=== PATIENT | female | born 1940 | race Caucasian/White ===

== ENCOUNTER → 2017-11-23 | Outpatient (CLI) | payer MEDICARE, OTHER | LOC: M.RAD 13:58 | DX: Z12.31 Encounter for screening mammogram for malignant neoplasm of breast (principal) ==

== ENCOUNTER 2019-07-25 07:42 | Observation (INO) | payer MEDICARE, OTHER ==
[2019-07-25] VITALS (17 sets, daily range): BP systolic 141–206; BP diastolic 45–83
[~2019-07-25] VITALS: Ht 165.1 cm; Wt 105.2 kg
--- NOTE | ~2019-07-25 | H ---
[address] [address] HISTORY AND PHYSICAL Name: MARIANNE DICKENS Room: [address] Ruba Rhoades#: [id number] Admission: 07/25/19 Attend Phys: Benedict Aguero MD, Discharge: 07/26/19 Date of : 44 Report #: [id number] THIS REPORT FOR: //name// Please refer to the History and Physical performed in the physician's office. By: 0816Medical Records Staff ABILIO /ELENI
[~2019-07-25 07:42] MED LIST: ASPIR 8181 MG PO; ATENOLOL 25MG T25 M1 PO; B COMPLEX1 EACH PO; CENTRUM SILVER1 EAC4 PO; SERTRALINE HCL50 MG PO; VITAMIN D5000 UNIT PO; ZOCOR20 MG PO
[2019-07-25 08:32] LABS: HEMOGLOBIN 13.5 gm/dL (12.0-15.0); MCH 29.6 pg (26.0-34.0); MCHC 33.8 g/dL (28.0-37.0); MCV 87.4 fL (80.0-100.0); MPV 7.9 fl. (7.2-11.1); RBC 4.58 mil/uL (4.20-5.00); RDW-CV 13.9 % (10.5-14.5); WBC 6.3 thou/uL (4.0-11.0)
[2019-07-25 08:35] LABS: CREATININE 0.9 mg/dL (0.6-1.3)
[2019-07-25 08:38] LABS: APTT 26.8 Seconds (25.0-31.3); PROTIME 10.1 Seconds (9.20-11.50)
[2019-07-25] MEDS ORDERED: IMDUR 30 MG TAB30 M1 PO (08:39)
[2019-07-25 08:45] LABS: ALBUMIN 3.8 g/dL (3.4-5.0); TOTAL BILIRUBIN 0.4 mg/dL (<0.1-1.0); TOTAL PROTEIN 6.9 g/dL (6.4-8.2)
[2019-07-25 09:08] LABS: CHOLESTEROL 151 mg/dL (<200); HDL CHOLESTEROL 42 mg/dL (>40); LDL CHOLESTEROL 80 mg/dL (<100); SERUM ASSESSMENT Clear; TC:HDL 3.6 Ratio (Not establshd); TRIGLYCERIDE 149 mg/dL (<150); VLDL 30 mg/dL (<40)
--- NOTE | 2019-07-25 10:49 | EKG ---
[place] [address] ELECTROCARDIOGRAM REPORT Name: PENNYMarciMARIANNE Nicole Room: [address] M.R.#: [id number] Admission: 07/25/19 Attend Phys: Benedict Aguero MD, Discharge: Date of : 44 Report #: [id number] THIS REPORT FOR: //name// [facility] Test Date: 2019-07-25 Test Time: 08:06:30 Pat Name: MARIANNE DICKENS Department: Room: [facility] Gender: F Document Control Manager: : 1940 Requested By: Benedict Aguero Order Number: [id number] Sallie MD: Benedict Aguero Measurements Intervals [place] Rate: 63 P: 38 [place]: 190 QRS: 32 QRSD: 123 T: 9 QT: 434 QTc: 445 Interpretive Statements Sinus rhythm Multiple premature complexes, vent & supraven Right bundle branch block No previous ECG available for comparison Electronically Signed On 07-25-2019 10:49:21 CDT by Benedict Aguero [email or web address] <ELECTRONICALLY SIGNED> By: Benedict Aguero MD, [facility] 07/25/19 1049 5 5 Benedict Aguero MD, FACC /EPI
--- NOTE | 2019-07-25 15:03 | EKG ---
[place] [address] ELECTROCARDIOGRAM REPORT Name: LYNNOÉMARIANNE Covarrubias Room: [address] M.R.#: [id number] Admission: 07/25/19 Attend Phys: Benedict Aguero MD, Discharge: Date of : 44 Report #: [id number] THIS REPORT FOR: //name// [facility] Test Date: 2019-07-25 Test Time: 11:34:10 Pat Name: MARIANNE DICKENS Department: Room: [facility] Gender: F Golf Course Architect: : 1940 Requested By: Benedict Aguero Order Number: [id number] Sallie MD: Benedict Aguero Measurements Intervals [place] Rate: 51 P: 40 [place]: 199 QRS: 38 QRSD: 132 T: 27 QT: 517 QTc: 477 Interpretive Statements Sinus rhythm IVCD, consider atypical RBBB Compared to ECG 07/25/2019 08:06:30 No significant changes Electronically Signed On 07-25-2019 15:03:17 CDT by Benedict Aguero [email or web address] <ELECTRONICALLY SIGNED> By: Benedict Aguero MD, [facility] 07/25/19 1503 1134 1134 Benedict Aguero MD, [facility] /EPI
--- NOTE | 2019-07-25 15:31 | CARD ---
[address] [address] CARDIAC CATH REPORT Name: MARIANNE DICKENS Room: [address] [place]#: [id number] Admission: 07/25/19 Attend Phys: Benedict Aguero MD, Discharge: Date of : 44 Report #: [id number] THIS REPORT FOR: //name// APPROVED REPORT Study performed: 07/25/2019 08:51:42 Patient Details The patient is a 78 year-old female Event Personnel Benedict Aguero Data Modeling Specialist, Chayito Grimes RN Flight Crew Time Clerk, Mariposa Silva RN Flight Crew Time Clerk, Sina Callejas (Eze Farfan Brad EMERGENCY ROOM TECHNICIAN Monitor, Mona Westbrook RTR Monitor Procedures Performed Left Heart Cath w/or w/o Coronaries [id number] [facility] w/wo Plasty Single LAD [id number] Indication Positive stress test Risk Factors Hypercholesterolemia, Hypertension Admission/Lab Medications/Medications given during procedure Angiomax bolus and infusion Procedure Narrative The patient was brought electively to the Cardiac Catheterization Laboratory and was prepped and draped in a sterile manner. The right femoral was infiltrated with 2% Lidocaine subcutaneous anesthesia. A Sulligent 6 FR sheath was inserted into the RFA. Coronary angiography was performed using coronary diagnostic catheters. The right coronary system was accessed and visualized with a JR 4 6F catheter. The left coronary system was accessed and visualized with a JL 4 6F catheter. The left ventricle was accessed and visualized with a STRAIGHT PIG 6F catheter. Left ventricular/Aortic Valve gradient assessed via catheter pullback. Pre-demployment femoral angiogram was performed . Closure device was deployed with a Fr Angioseal STS 6Fr. The patient tolerated the procedure well and there were no complications associated with the procedure. There was no hematoma. Intraoperative Conscious Sedation Sedation start time: 923 Case end Time: [place] [address] CARDIAC CATH REPORT Name: PENNYMarciMARIANNE Room: [address] M.R.#: [id number] Admission: 07/25/19 Attend Phys: Benedict Aguero MD, Discharge: Date of : 44 Report #: [id number] 1012 Fentanyl 50 mcg Versed 3 mg Fluoro Time: 9.1 minutes Dose: DAP [id number] cGycm2 2037 mGy Contrast Type and Amount: Visipaque 420 ml Coronary Angiography The patient's coronary anatomy is right dominant. Diagnostic Cath Left Main 0% narrowing LAD 80% mid with 40% distal stenosis Circumflex 40% mid vessel narrowing Right Coronary Dominant vessel with 30% proximal 40% mid and 30% distal narrowing Left Ventriculography The left ventricle is normal in size with normal contractility. The left ventricular ejection fraction is estimated to be 60%. Left ventricular wall motion abnormalities are not present. There is no mitral insufficiency. Hemodynamics The aortic pressure is 187/66 mmHg with a mean of 109 mmHg. The left ventricular pressure is 197/3 mmHg with a mean of mmHg. The left ventricular end diastolic pressure is 17 mmHg. There was no gradient across the aortic valve upon pullback. PCI Technique Lesion Anticoagulation was achieved with Angiomax Drip. Patient was preloaded with Angiomax IV 18 mg per kg. Percutaneous coronary intervention was performed on the mid left anterior descending artery segment. The lesion stenosis prior to intervention was 80% with PETE 3 flow. A 6F XB LAD 3.5 Guide Catheter was used to engage the LEFT ostium. A IG: BMW 190cm Interventional Guidewire was used to cross the lesion. BALLOON DILATION A Balloon catheter NC Euphora 2.5x8 was inserted and inflated up to 16.00atm for 20seconds. Additional Inflation: 20.00atm for 13seconds. STENT DEPLOYMENT A drug-eluting stent Xience Li 2.5X12mm was inserted and inflated up to 12.00atm for 11seconds. Additional Inflation: 15.00[place] [address] CARDIAC CATH REPORT Name: MARIANNE DICKENS Room: [address] M.R.#: [id number] Admission: 07/25/19 Attend Phys: Benedict Aguero MD, Discharge: Date of : 44 Report #: [id number] 9seconds. POST STENT DEPLOYMENT BALLOON DILATION A Balloon catheter NC Euphora 2.75x8 was inserted and inflated up to 15.00atm for 9seconds. Additional Inflation: 17.00atm for 5seconds. Final angiography reveals 0 % stenosis with PETE 3 flow. Conclusion #1 significant coronary artery disease characterized by the following: A 80% mid LAD narrowing with 40% distal narrowing B 40% narrowing of the midportion of the nondominant circumflex C dominant right coronary artery 30% proximal 40% mid and 30% distal narrowing #2 normal left ventricular systolic function, estimate ejection fraction being 60% #3 significant systemic systolic hypertension with moderate elevation of left ventricular end-diastolic pressure at rest #5 successful percutaneous coronary intervention with deployment of drug-eluting stent at the site of 80% mid LAD stenosis with 0% residual narrowing and PETE-3 flow the distal vessel Recommendations Cardiac Risk Reduction Program Aggressive Medical Therapy Medications Administered Aspirin (any) Ticagrelor Diagnostic Cath Approved by: Benedict Aguero MD Date/Time: 07/25/2019 15:30:37 <ELECTRONICALLY SIGNED> By: Benedict Aguero MD, [facility] 07/25/19 1531 1531 1531Benedict Aguero MD, FAC /INF
--- NOTE | 2019-07-25 17:42 | NUR ---
PT ARRIVED TO UNIT POST CATH AT APPROX 1045, FAMILY AT SIDE. EDUCATED ON POST CATH PROCEDURES, PT TO LAY FLAT UNTIL 1630. PT BECAME HYPERTENSIVE. NEW ORDERS RECVD FOR LOSARTAN AND HYDRALAZINE, PT TOLERATED WELL. ORIENTED TO CALL LIGHT AND ROOM, HOURLY ROUNDING COMPLETED.
[2019-07-26] VITALS: BP 200/71
--- NOTE | 2019-07-26 01:34 | NUR ---
RIGHT GROING POST CATH DRESSING DRY AND INTACT WITH BRUISING UNDERNEATH. BRUISING ALSO NOTED UNDER IV SITE. OFFERED TO GIVE PT PRN HYDRALAZINE WITH HS MEDS WITH BP 172/67. RECHECKED @ 2230 BP WAS 169/66. DENIED ANY PAIN. PT DID REPORT SOME ANXIETY AND SOA R/T "BLOOD PRESSURE BEING HIGH TODAY." PT REPORTED "THE CARDIOLOGY TOLD ME THE BRINTELLIX MIGHT MAKE MY BP HIGH FOR THE FIRST 24HRS." MIDNIGHT AND REPORT GIVEN TO DERRICK GUTHRIE. PRN HYDRALAZINE GIVEN BY JESICA GUTHRIE.
[2019-07-26 02:49] VITALS: BP 181/73
[2019-07-26 04:00] VITALS: BP 171/74
[2019-07-26 04:45] LABS: HEMATOCRIT 39.2 % (37.0-47.0); HEMOGLOBIN 13.2 gm/dL (12.0-15.0); MCH 29.6 pg (26.0-34.0); MCHC 33.8 g/dL (28.0-37.0); MCV 87.4 fL (80.0-100.0); MPV 8.6 fl. (7.2-11.1); RBC 4.48 mil/uL (4.20-5.00); RDW-CV 14.3 % (10.5-14.5); WBC 10.4 thou/uL (4.0-11.0)
[2019-07-26 05:01] LABS: ALBUMIN 3.7 g/dL (3.4-5.0); CALCIUM 9.5 mg/dL (8.5-10.1); CREATININE 0.9 mg/dL (0.6-1.3); POTASSIUM 3.8 mmol/L (3.5-5.1); TOTAL BILIRUBIN 0.5 mg/dL (<0.1-1.0); TOTAL PROTEIN 6.8 g/dL (6.4-8.2); TROPONIN-I LEVEL 0.46 ng/mL (<0.06)
--- NOTE | 2019-07-26 06:45 | NUR ---
RECIEVED PATIENT AT 0100. PATIENT BP ELEVATED TO 200/73. ADMINISTERED HYDRALAZINE AND BP LOWERING SLOWLY. PATIENT C/O PAIN IN HEAD, TYLENOL ADMINISTERED. SCREENED PATIENT FOR POSSIBILITY OF A STROKE, NO SIGNS OR SYMPTOMS PRESENT. ALL OTHER VSS. NO OTHER SIGNIFICANT ISSUES TO REPORT.
[2019-07-26 07:32] VITALS: BP 179/69
--- NOTE | 2019-07-26 09:56 | EKG ---
[place] [address] ELECTROCARDIOGRAM REPORT Name: CHRISSIEMARIANNE L Room: [address] M.R.#: [id number] Admission: 07/25/19 Attend Phys: Benedict Aguero MD, Discharge: Date of : 44 Report #: [id number] THIS REPORT FOR: //name// [facility] Test Date: 2019-07-26 Test Time: 07:55:01 Pat Name: MARIANNE DICKENS Department: Room: [facility] Gender: F Cable Repairer: : 1940 Requested By: Benedict Aguero Order Number: [id number] Reading MD: Jim Raymond Measurements Intervals [place] Rate: 61 P: 21 [place]: 176 QRS: 34 QRSD: 131 T: -1 QT: 442 QTc: 446 Interpretive Statements Sinus rhythm Atrial premature complex IVCD, consider atypical RBBB Compared to ECG 07/25/2019 11:34:10 Atrial premature complex(es) now present Electronically Signed On 07-26-2019 9:56:20 CDT by Jim Raymond [email or web address] <ELECTRONICALLY SIGNED> By: Jossie Raymond MD, [facility] 07/26/19 0956 0755 0755 Jossie Raymond MD, [facility] /EPI
[2019-07-26] MEDS ORDERED: COZAAR 25 MG TA25 M1 PO (12:00)
[2019-07-26] MEDS ORDERED: BRILINTA90 MG PO (12:01)
[2019-07-26] MEDS ORDERED: NORVASC5 MG PO (12:04)
[2019-07-26 12:06] VITALS: BP 179/69
--- NOTE | 2019-07-26 15:48 | NUR ---
ORDER RECEIVED TO DISCHARGE AMANDA HOME TO SELF CARE WITH DAUGHTER. MED REEC, MEDICATION EDUCATION, STROKE EDUCATION, AND NEED FOR FOLLOW UP APPOINTMENTS COVERED AND STATED UNDERSTOOD BY PATIENT. IV AND TELEMETRY PACK REMOVED. HOURLY ROUNDING COMPLETED FOR PATIENT SAFETY. AMANDA TRNSPORTED VIA WHEELCHAIR TO AWAITING CAR BY EUGENIA WITH DAUGHTER PRESENT. DISCHARGE TIME OF 13:35.
--- NOTE | 2019-07-28 11:54 | EKG ---
[place] [address] ELECTROCARDIOGRAM REPORT Name: MARIANNE DICKENS Room: [address] M.R.#: [id number] Admission: 07/25/19 Attend Phys: Benedict Aguero MD, Discharge: 07/26/19 Date of : 44 Report #: [id number] THIS REPORT FOR: //name// [facility] Test Date: 2019-07-26 Test Time: 03:18:52 Pat Name: MARIANNE DICKENS Department: Room: [address] Gender: F Cleaner Operator: [email or web address] : 1940 Requested By: Benedict Aguero Order Number: [id number] Sallie MD: Benedict Aguero Measurements Intervals [place] Rate: 64 P: 43 [place]: 188 QRS: 40 QRSD: 147 T: 21 QT: 485 QTc: 501 Interpretive Statements Sinus rhythm with pac's Right bundle branch block Compared to ECG 07/25/2019 11:34:10 Pac's are noted Electronically Signed On 07-28-2019 11:54:02 CDT by Benedict Aguero [email or web address] <ELECTRONICALLY SIGNED> By: Benedict Aguero MD, [facility] 07/28/19 1154 0318 0318 Benedict Aguero MD, [facility] /EPI
--- NOTE | 2019-07-29 15:09 | D ---
[address] [address] DISCHARGE SUMMARY Name: CHRISSIEMARIANNE Nicole Room: [address] Ruba Rhoades#: [id number] Admission: 07/25/19 Attend Phys: Benedict Aguero MD, Discharge: 07/26/19 Date of : 44 Report #: [id number] THIS REPORT FOR: //name// CC: Trip Aguero DATE OF SERVICE: 07/26/2019 FINAL DISCHARGE DIAGNOSES: 1. Abnormal nuclear stress test. 2. Coronary artery disease. 3. Status post percutaneous coronary intervention of the left anterior descending. 4. Hypertension. 5. Hyperlipidemia. PROCEDURES: On 07/25/2019 -- left heart catheterization, left ventriculography, selective coronary arteriography, and percutaneous coronary intervention to the LAD. HOSPITAL COURSE: The patient is an active and vibrant 78-year-old female with underlying hypertension and hyperlipidemia. She had noted some dyspnea on exertion. Recent nuclear stress test revealed inducible inferoapical ischemia. In this context, I performed cardiac catheterization on 07/25/2019, which revealed 80% mid LAD stenosis with 40% distal LAD narrowing. There were no significant stenosis of the left main, circumflex, or right coronary artery. I performed percutaneous coronary intervention on the mid LAD, deploying 1 drug-eluting stent with 0% residual narrowing and PETE-3 flow of the distal vessel. The patient did well post-procedurally with a minimal increase in troponin I to 0.46. Lab revealed a sodium of 140, potassium 3.8, BUN 14, creatinine 0.9. Hemoglobin 13.2, white blood cell count 10,400 with 232,000 platelets. Cholesterol 151, HDL 42, LDL 80, triglycerides 149 mg percent. She ambulated in the hallways without difficulty and there was good hemostasis at the right femoral site with minimal ecchymotic area in the paco-procedural zone. She was discharged to home on the following medications: Aspirin 81 mg daily, atenolol 50 mg daily, cholecalciferol 5000 units daily, Imdur 30 mg daily, losartan 50 mg daily, Centrum Silver vitamins one tablet daily, sertraline 100 mg daily, simvastatin 20 mg at bedtime, ticagrelor or Brilinta 90 mg b.i.d. with 180 mg loading dose periprocedurally, vitamin B complex 1 tablet daily, and Norvasc 5 mg daily. Of note, systemic pressures were mildly elevated in the hospital and she was started on losartan, amlodipine was initiated at 5 mg, [place] [address] DISCHARGE SUMMARY Name: MARIANNE DICKENS Room: [address] Ruba Rhoades#: [id number] Admission: 07/25/19 Attend Phys: Benedict Aguero MD, Discharge: 07/26/19 Date of : 44 Report #: [id number] increased to 50 mg daily. The patient is scheduled to return to see my nurse practitioner, Madison Huerta on 08/08/2019 at 10:30 and myself in 8 weeks. <ELECTRONICALLY SIGNED> By: Benedict Aguero MD, [facility] 07/29/19 1509 1022 1037Jojake Aguero MD, FAC /nt
== END 2019-07-26 13:28 | disposition home or self-care (01) ==
LOC: M.CL 07:42 → M.2W 10:31 → M.TBA-CV 10:31 → M.2W 10:57
PROVIDERS: ADMIT Internal Medicine
DX: I25.10 Atherosclerotic heart disease of native coronary artery without angina pectoris (principal); I10 Essential (primary) hypertension; E78.5 Hyperlipidemia, unspecified; R94.39 Abnormal result of other cardiovascular function study

== ENCOUNTER → 2019-08-12 | Outpatient (CLI) | payer MEDICARE, OTHER ==
[~2019-08-12] MED LIST changes: +BRILINTA90 MG PO; +COZAAR 25 MG TA25 M1 PO; +IMDUR 30 MG TAB30 M1 PO; +NORVASC5 MG PO
== END ==
LOC: M.CT 09:30
DX: I77.810 Thoracic aortic ectasia (principal); I25.10 Atherosclerotic heart disease of native coronary artery without angina pectoris; I10 Essential (primary) hypertension; E66.09 Other obesity due to excess calories; E78.00 Pure hypercholesterolemia, unspecified; R06.02 Shortness of breath; K20.9 Esophagitis, unspecified; Z68.37 Body mass index [BMI] 37.0-37.9, adult

== ENCOUNTER → 2019-08-18 | Outpatient (CLI) | payer MEDICARE, OTHER | LOC: M.ULTRA 10:30 | DX: E04.2 Nontoxic multinodular goiter (principal) ==